=== PATIENT | female | born 1985 | race Caucasian/White ===

== ENCOUNTER 2017-12-19 20:58 | Emergency (ER) | payer MEDICAID, OTHER ==
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
[2017-12-20 03:16] VITALS: BP 108/76
== END 2017-12-20 03:20 | disposition home or self-care (01) ==
DX: F10.129 Alcohol abuse with intoxication, unspecified (principal); F17.200 Nicotine dependence, unspecified, uncomplicated

== ENCOUNTER 2018-07-19 19:45 | Emergency (ER) | payer OTHER, MEDICAID ==
[2018-07-19 19:51] VITALS: BP 130/104
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
== END 2018-07-19 20:12 ==
LOC: EDUNIT#
DX: F10.920 Alcohol use, unspecified with intoxication, uncomplicated (principal); V49.49XA Driver injured in collision with other motor vehicles in traffic accident, initial encounter